=== PATIENT | female | born 1960 | race Caucasian/White ===

== ENCOUNTER 2017-01-11 21:37 | Emergency (ER) | payer OTHER ==
--- NOTE | ~2017-01-11 | ER ---
PATIENT'S NAME: LESLI WELLS I [facility] AGE: 56 Y [address] ROOM: [place] [address] LOCATION: ED ADMIT DATE: 01/11/2017 ER/Outpatient Report DISCHARGE DATE: 01/11/2017 FAMILY PHYSICIAN: Rylie Basurto ATTENDING PHYSICIAN: Ricci Moss Admission date and time documented in the medical record. I saw the patient at 2150 hours. CHIEF COMPLAINT: Mid anterior lower chest pain. HISTORY OF PRESENT ILLNESS: The patient is a 56-year-old female who presented to the emergency room with mid substernal chest pain, squeezing in nature with shortness of breath. Over the past week, she has had some pain underneath her left breast, that today moved to substernal area. It comes and goes. She has episodes that lasted about 20 seconds. Had increased frequency of these episodes today. Worse when up and about and active. No nausea, vomiting, or diaphoresis. No other illnesses. No history of hypertension, coronary artery disease, dyslipidemia, or diabetes. She has never smoked. She has a family history of heart disease later in life, in the 80s or 90s years of age. No fall or trauma. No heavy pushing, pulling, or lifting recently. No lightheadedness, dizziness, syncope, or near syncope. No cough, colds, flus, fever, chills, or sweats. No headache, eyes, ears, nose, throat, neck, or spine pain. No abdominal pain. No diarrhea. No urinary frequency, urgency, or dysuria. No joint or muscle swelling, redness, or pain. No skin eruptions or rash. Does have a history of hypothyroidism. No other endocrine problems. No neuro changes. No psych issues. HOME MEDICATIONS: See attached medication list. ALLERGIES: NONE. SOCIAL HISTORY: Nonsmoker and nondrinker. SIGNIFICANT PAST MEDICAL HISTORY: Degenerative osteoarthritis, seasonal allergies, and hypothyroidism. OPERATIONS: Lymph node biopsy, knee arthroscopy, and tonsillectomy. PATIENT'S NAME: LESLI WELLS I [facility] AGE: 56 Y [address] ROOM: [place] [address] LOCATION: ED ADMIT DATE: 01/11/2017 ER/Outpatient Report DISCHARGE DATE: 01/11/2017 FAMILY PHYSICIAN: Rylie Basurto ATTENDING PHYSICIAN: Ricci Moss REVIEW OF SYSTEMS: All systems reviewed by me are negative with the exception of those discussed in the history of the present illness. PHYSICAL EXAMINATION: VITAL SIGNS: Temperature 98.6 tympanic, pulse 81, respirations 16, blood pressure 214/89, and O2 saturation on room air was 93%. Edwardo Coma Scale was 15. HEAD: Normocephalic. EYES, EARS, NOSE, THROAT: Clear. Mucous membranes moist. NECK: No nuchal rigidity. No findings of adenopathy. No carotid bruits. SPINE: Nontender. No deformity. LUNGS: Clear. Good air flow. No rales, rhonchi, or wheezes. HEART: Regular. Pulses are palpable. Does have tenderness in the mid sternal area over the xiphoid process area and underneath the left breast on the lower aspect of the anterior chest wall ribcage. ABDOMEN: Soft, nondistended, and nontender. Good bowel tones. No organomegaly or abnormal mass palpable. EXTREMITIES: Intact. NEUROVASCULAR: Intact. SKIN: Clear. No skin eruptions or rash. DIAGNOSTIC DATA: EKG showed sinus rhythm, no acute ST elevation, ischemic change, or arrhythmia. Chest x-ray showed no acute infiltrate or changes. We will review x-ray with the radiologist. LABORATORY DATA: White count is 10,600, 53 segs, 35 lymphs, 9 monos, 2 eos, hemoglobin is 13.6, hematocrit 41.4, and platelet count is 334,000. Sedimentation rate was normal at 14. PTT was 27. Pro-time was 9.8 with an INR of 0.93. TSH was 5.3. ProBNP was 58. CMS was normal except an elevated glucose of 115, low calcium of 8.2, magnesium was 2.0. CPK was 77. Point of care cardiac enzymes were normal. CRP was 1.32. Procalcitonin was less than 0.05. Lactate was 2.5. EMERGENCY DEPARTMENT COURSE: I did give the patient IV Toradol 30 mg and IV Solu-Medrol 125 mg here in the emergency room. Discharged home. Observation. Activity as tolerated. Heating pad to area of soreness of the chest wall intermittently as needed. Continue home medications and care. Naprosyn 500 mg b.i.d. with food x10 days. Percocet 5/325 as needed for pain #16. The patient is to get scheduled for a cardiac stress test. Follow up with personal physician in 3 to 4 days. Discussion ensued with the patient concerning my findings and recommendations, she understands. PATIENT'S NAME: LESLI WELLS I [facility] AGE: 56 Y [address] ROOM: [place] [address] LOCATION: [facility] ADMIT DATE: 01/11/2017 ER/Outpatient Report DISCHARGE DATE: 01/11/2017 FAMILY PHYSICIAN: Rylie Basurto ATTENDING PHYSICIAN: Ricci Msos MD SAUL FALK/zoyal /[id number] d: 01/12/17 0418 t: 01/17/17 1814, OUTPATIENT REPORT
[2017-01-11 22:15] LABS: BASOPHIL % 0.2 %; EOSINOPHIL # 0.2 K/uL (0.0-0.5); EOSINOPHIL % 2.2 %; HEMATOCRIT 41.4 % (33.0-46.0); HEMOGLOBIN 13.6 g/dL (10.0-15.0); IMMATURE GRANULOCYTE % 0.2 %; LYMPHOCYTE # 3.7 K/uL (0.8-4.0); MCHC 32.9 gm/dL (32.0-36.5); MCV 91.4 fl (83.0-98.0); MONOCYTE % 9.2 %; MPV 9.7 fl (9.4-12.4); NEUTROPHIL # (ANC) 5.6 K/uL (1.8-7.8); NEUTROPHIL % 53.2 %; NRBC % 0 /100WBC (0-0.00); PLATELET COUNT 334 K/uL (150-450); RBC 4.53 M/uL (3.50-5.50); RDW-CV 13.9 % (11.9-14.6); WBC 10.6 K/uL (4.0-11.0)
[2017-01-11 22:26] LABS: INR - (THERAPEUTIC) 0.93 (0.92-1.07); PROTIME 9.8 SECONDS (9.8-11.4); PTT 27 SECONDS (25-32)
[2017-01-11 22:40] LABS: ALBUMIN 3.4 gm/dL (3.5-5.0); ALK PHOS 75 IU/L (33-138); ALT 19 IU/L (12-78); BLOOD UREA NITROGEN 19 mg/dL (6-24); CALCIUM 8.2 mg/dL (8.5-10.5); CHLORIDE 106 mMol/L (96-110); CO2 24 mMol/L (22-32); SODIUM 139 mMol/L (135-145); TOTAL BILIRUBIN 0.3 mg/dL (0.0-1.5); TOTAL PROTEIN 6.9 g/dL (6.0-8.4)
[2017-01-11 22:42] LABS: ANION GAP 12.9 (10.0-19.0); AST 19 IU/L (10-40); CPK 77 IU/L (21-215); POTASSIUM 3.9 mMol/L (3.7-5.1)
== END 2017-01-11 23:42 | disposition disaster alternative care site (69) ==
LOC: GMED 21:37
PROVIDERS: Emergency Medicine
DX: R07.2 Precordial pain (principal); E03.9 Hypothyroidism, unspecified; M19.90 Unspecified osteoarthritis, unspecified site; Z79.1 Long term (current) use of non-steroidal anti-inflammatories (NSAID); Z79.899 Other long term (current) drug therapy; Z98.890 Other specified postprocedural states
CPT/HCPCS: J1885; J2930